=== PATIENT | female | born 1980 | race African-American/Black ===

== ENCOUNTER 2016-06-11 20:19 | Emergency (ER) | payer MEDICAID, OTHER ==
[~2016-06-11] VITALS: Ht 162.6 cm; Wt 101.0 kg
[~2016-06-11 20:19] MED LIST: IBUP600 PO; OXYC1SOL5 PO; PERI8.6T PO; PREN0.01 PO
[2016-06-11 20:20] VITALS: BP 147/70; PULSE 74; RESP 16; TEMP 98.1; O2SAT 99
--- NOTE | 2016-06-11 22:40 | RADRPT ---
EXAM DATE/TIME: 06/11/2016 22:12 [facility] COMPARISON: No previous studies available for comparison. INDICATIONS : Headache. MEDICAL HISTORY : None. SURGICAL HISTORY : None. ENCOUNTER: Initial ACUITY: 1 day PAIN SCORE: 0/10 LOCATION: Bilateral chest FINDINGS: Medial right apical and right paratracheal density is asymmetrically increased which I think is relat ed to rotation of the film. Lungs otherwise clear. No pleural effusion suspected. Heart size and pulm onary vascular are normal. Thoracic skeleton appears grossly intact. CONCLUSION: Increased right paratracheal density likely related to rotation. Follow up with good quality PA and l ateral views would be suggested Neftaly García MD on June 11, 2016 at 22:37 Board Certified Radiologist. This report was verified electronically.
--- NOTE | 2016-06-11 22:42 | PD ---
HPI Chief Complaint: Headache Time Seen by Provider: 21:42 Travel History International Travel<30 days: No Contact w/Intl Traveler<30days: No Traveled to known affect area: No History of Present Illness HPI The patient is a 35 year old female who presents to the [facility] emergency department with a history of reported headache that comes and goes and is waxing and waning in severity that began 3 days ago. She reports that the headache is a pressure sensation over the left side of her face. She denies having any dental problems on that side. She reports that she does have one loose tooth on the right. She reports that she does have chronic allergy symptoms and a dry cough, however this is been no worse than usual. She denies having any fevers or nasal discharge. She denies taking anything for the pain earlier today. She reports that earlier today she did have intermittent sensations of tingling in her left hand. She denies any numbness or tingling currently. She denies having any facial droop. She denies having any vision changes, difficulty with word finding ability, one-sided weakness, or slurred speech. She denies having any prior history of headaches similar to this. The patient denies any neck pain, chest pain, shortness of breath, abdominal pain, vomiting, diarrhea, urinary symptoms, or other neurologic symptoms. LMP May 28, 2016 PCP: Dr. Dye- 6 months ago. [facility] Past Medical History Narrative Medical The patient's past medical history is significant for chronic cough and allergies. Medical History: Denies Significant Hx Diminished Hearing: No Immunizations Current: No ?: Not LMP: 05/28/16 Menopausal: Yes : 5 Para: 3 Miscarriage: 2 Past Surgical History Narrative Surgical The patient's past surgical history is significant for x4. Section: Yes Social History Alcohol Use: Yes (OCC) Tobacco Use: No Substance Use: No Allergies-Medications (Allergen,Severity, Reaction): Coded Allergies: No Known Allergies (Verified , 06/11/16) Reported Meds & Prescriptions Reported Meds & Active Scripts Active Ibuprofen 600 Mg Tab 600 Mg PO Q8HR PRN Keflex (Cephalexin) 500 Mg Cap 500 Mg PO Q8H Motrin 600 Mg Tab (Ibuprofen) 600 Mg Tab 600 Mg PO Q6H PRN Vicenta-Colace 8.6-50 mg (Sennosides-Docusate Sodium) 1 Tab Tab 2 Tab PO Q12H PRN Oxycodone/Acetaminophen 5-325 mg/5Ml (Oxycodone W/ Acetaminophen) 1 Tab Tab 1 Tab PO Q4H PRN Reported Vitamins 1 Tab PO DAILY Review of Systems Except as stated in HPI: all other systems reviewed are Neg General / Constitutional: No: Fever Eyes: No: Visual changes HENT: Positive: Headaches, Rhinitis, No: Rhinorrhea, Congestion, Neck Pain Cardiovascular: No: Chest Pain or Discomfort, Dyspnea on exertion Respiratory: No: Cough, Shortness of Breath Gastrointestinal: No: Nausea, Vomiting, Diarrhea, Abdominal Pain Genitourinary: No: Dysuria Musculoskeletal: No: Pain Skin: No Rash Neurologic: Positive: Focal Abnormalities, Headache, Paresthesia (left hand), No: Weakness, Change in Mentation, Slurred Speech, Sensory Disturbance Psychiatric: No: Depression Endocrine: No: Polydipsia Hematologic/Lymphatic: No: Easy Bruising Physical Exam Narrative General: The patient is a well-developed well-nourished female in no acute distress. Head and Neck exam: Head is normocephalic atraumatic. Eyes: Extraocular motion is intact. Pupils are equal round and reactive to light. Nose: Midline septum with pink mucous membranes. no sinus tenderness on palpation of the frontal and maxillary sinuses. Mouth: Dentition unremarkable. No dental pain on palpation. No jaw pain on palpation. No jaw swelling noted. Moist mucus membranes. Posterior oropharynx is not erythematous. No tonsillar hypertrophy. Uvula midline. Airway patent. Neck: No palpable lymphadenopathy. No nuchal rigidity. No thyromegaly. Cardiovascular: Regular rate and rhythm without murmurs, gallops, or rubs. Lungs: Clear to auscultation bilaterally. No wheezes, rhonchi, or rales. Abdomen: Soft, without tenderness to palpation in all 4 quadrants of the abdomen. No guarding, rebound, or rigidity. Normal bowel sounds are audible. Extremities: No clubbing, cyanosis, or edema. 2+ pulses in all 4 extremities. Back: No spinous process tenderness to palpation. No costovertebral angle tenderness to palpation. Neurologic Exam: Cranial nerves 2-12 were intact on exam. Strength is 5/5 in all 4 extremities. No sensory deficits noted. Skin Exam: No rash noted. Intact skin that is warm and dry. Data Data Last Documented VS Vital Signs Date Time Temp Pulse Resp B/P Pulse Ox O2 Delivery O2 Flow Rate FiO2 06/12/16 01:10 98.4 66 16 139/88 100 Room Air Orders Electrocardiogram (06/11/16 21:52) Complete Blood Count With Diff (06/11/16 21:52) Comprehensive Metabolic Panel (06/11/16 21:52) Creatine Kinase (Cpk) (06/11/16 21:52) Ckmb (Isoenzyme) Profile (06/11/16 21:52) Troponin I (06/11/16 21:52) Prothrombin Time / Inr (Pt) (06/11/16 21:52) Act Partial Throm Time (Ptt) (06/11/16 21:52) Urinalysis - C+S If Indicated (06/11/16 21:52) Magnesium (Mg) (06/11/16 21:52) Chest, Single Ap (06/11/16 21:52) Ct Brain W/O Iv Contrast(Rout) (06/11/16 21:52) Iv Access Insert/Monitor (06/11/16 21:52) Ecg Monitoring (06/11/16 21:52) Oximetry (06/11/16 21:52) Ed Urine Pregnancytest Poc (06/11/16 21:52) Mri Brain W&W/O Contrast (06/11/16 21:52) Ct Cerv Spine W/O Contrast (06/11/16 ) Sodium Chlor 0.9% 1000 Ml Inj (Ns 1000 M (06/11/16 23:00) Ketorolac Inj (Toradol Inj) (06/11/16 23:00) Urine Culture (06/11/16 22:26) CKMB (06/11/16 22:36) CKMB% (06/11/16 22:36) Ceftriaxone Inj (Rocephin Inj) (06/12/16 00:00) Gadodiamide Pf Inj (Omniscan Pf Inj) (06/11/16 23:57) Labs Laboratory Tests Test 06/11/16 06/11/16 22:26 22:36 Urine Color YELLOW Urine Turbidity HAZY Urine pH 6.0 Urine Specific [place] 1.025 Urine Protein NEG mg/dL Urine Glucose (UA) NEG mg/dL Urine Ketones NEG mg/dL Urine Occult Blood SMALL Urine Nitrite NEG Urine Bilirubin NEG Urine Urobilinogen LESS THAN 2.0 MG/DL Urine Leukocyte Esterase LARGE Urine RBC 7 /hpf Urine WBC 12 /hpf Urine Squamous Epithelial 10 /hpf Cells Urine Transitional Epithelial <1 /hpf Cells Urine Bacteria RARE /hpf Urine Mucus FEW /lpf Microscopic Urinalysis Comment CULTURE INDICATED White Blood Count 9.9 TH/MM3 Red Blood Count 4.37 MIL/MM3 Hemoglobin 11.6 GM/DL Hematocrit 35.4 % Mean Corpuscular Volume 81.1 FL Mean Corpuscular Hemoglobin 26.6 PG Mean Corpuscular Hemoglobin 32.8 % Concent Red Cell Distribution Width 15.7 % Platelet Count 236 TH/MM3 Mean Platelet Volume 9.6 FL Neutrophils (%) (Auto) 53.4 % Lymphocytes (%) (Auto) 37.5 % Monocytes (%) (Auto) 6.9 % Eosinophils (%) (Auto) 1.4 % Basophils (%) (Auto) 0.8 % Neutrophils # (Auto) 5.3 TH/MM3 Lymphocytes # (Auto) 3.7 TH/MM3 Monocytes # (Auto) 0.7 TH/MM3 Eosinophils # (Auto) 0.1 TH/MM3 Basophils # (Auto) 0.1 TH/MM3 CBC Comment DIFF FINAL Differential Comment Prothrombin Time 10.8 SEC Prothromb Time International 1.0 RATIO Ratio Activated Partial 27.3 SEC Thromboplast Time Sodium Level 138 MEQ/L Potassium Level 4.1 MEQ/L Chloride Level 106 MEQ/L Carbon Dioxide Level 26.0 MEQ/L Anion Gap 6 MEQ/L Blood Urea Nitrogen 13 MG/DL Creatinine 0.70 MG/DL Estimat Glomerular Filtration 117 ML/MIN Rate Random Glucose 90 MG/DL Calcium Level 8.7 MG/DL Magnesium Level 1.8 MG/DL Total Bilirubin 0.2 MG/DL Aspartate Amino Transf 10 U/L (AST/SGOT) Alanine Aminotransferase 15 U/L (ALT/SGPT) Alkaline Phosphatase 61 U/L Total Creatine Kinase 123 U/L Creatine Kinase MB LESS THAN 0.5 NG/ML Troponin I LESS THAN 0.02 NG/ML Total Protein 8.4 GM/DL Albumin 3.5 GM/DL MDM Medical Decision Making Medical Screen Exam Complete: Yes Emergency Medical Condition: Yes Medical Record Reviewed: Yes Interpretation(s) Last Impressions Head CT 06/11/16 2151 Signed Impressions: Service Date/Time: Sunday, June 12, 2016 00:22 - CONCLUSION: Normal examination. Neftaly García MD Chest X-Ray 06/11/162151 Signed Impressions: Service Date/Time: Saturday, June 11, 2016 22:12 - CONCLUSION: Increased right paratracheal density likely related to rotation. Follow up with good quality PA and lateral views would be suggested Neftaly García MD Brain MRI 06/11/162151 Signed Impressions: Service Date/Time: Saturday, June 11, 2016 23:26 - CONCLUSION: No acute intracranial findings Neftaly García MD Cervical Spine CT 06/11/16 0000 Signed Impressions: Service Date/Time: Sunday, June 12, 2016 00:22 - CONCLUSION: No acute bony findings. Degenerative change most significantly C5-6. 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 The patient had IV access obtained and blood work sent for analysis. The patient was placed on a webbing seamer pound net with oximetry and blood pressure monitoring. CT scan of the head and neck was ordered. The patient had an EKG done. The patient's EKG shows a sinus rhythm heart rate of [address] segment elevation, T waves are inverted in V1, lead 3, no acute ST segment depression. The patient was provided Toradol for pain, normal saline 1 L IV fluid bolus, Rocephin 1 g IV 1 after urinary tract infection was identified. The patients laboratory studies were reviewed and remarkable for a CBC that is unremarkable. CMP is unremarkable, CPK within normal limits, troponin I less than 0.02, PT PTT unremarkable. Urinalysis shows small occult blood and large leukocyte Estrace 7 RBCs 12 WBCs rare bacteria, culture indicated. Radiology studies were reviewed and remarkable for a CT scan of the brain that shows no acute abnormality, CT scan of the C-spine shows some degenerative changes, otherwise no acute abnormality. MRI of the brain was read as negative for acute abnormality by the reading radiologist. Chest x-ray shows increased right paratracheal density likely related to rotation, recommended follow-up with a good quality PA and lateral view, however at this time the patient denies having any acute respiratory complaints and would like to avoid further radiation. I suspect from looking at the films myself that the patient is rotated. The patient will be discharged home with a prescription for antibiotic and Motrin. The patient was instructed regarding the importance of close follow-up with her primary care physician I recommended that she followed up in the next 3 days for reexamination. The patient reported improvement on reevaluation. The patient is resting comfortably and feels better, is alert and in no distress. The patients results and examination findings were discussed with the patient The repeat examination is unremarkable and benign. The history, exam , diagnostic testing, and current condition do not suggest any significant pathology to warrant further testing, continued ED treatment, admission, or surgical evaluation at this point. The vital signs have been stable. The patient does not have uncontrollable pain, intractable vomiting, or other significant symptoms. The patient's condition is stable and appropriate for discharge. The patient will pursue further outpatient evaluation with a primary care physician or other designated or consulting physician as indicated in the discharge instructions. The patient expressed understanding and was agreeable with this plan. Diagnosis Primary Impression: Headache Qualified Code: R51 - Acute nonintractable headache, unspecified headache type Additional Impressions: Left hand paresthesia Urinary tract infection Qualified Code: N30.00 - Acute cystitis without hematuria Referrals: Primary Care Physician Patient Instructions: Acute Headache (ED), General Instructions, Paresthesia ( ED), Urinary Tract Infection in Women (ED) Med/Other Pt SpecificInfo: Prescription(s) given Scripts Ibuprofen 600 Mg [id number] Mg PO Q8HR PRN (PAIN) #9 TAB Ref 0 Prov:Leydi Elizondo MD 06/12/16 Cephalexin (Keflex)500 Mg [id number] Mg PO Q8H #30 CAP Ref 0 Prov:Leydi Elizondo MD 06/12/16 Disposition: 01 DISCHARGE HOME Condition: Stable Leydi Elizondo MD Jun 11, 2016 22:41
[2016-06-11 22:54] LABS: AUTOMATED NEUTROPHIL # 5.3 TH/MM3 (1.8-7.7); BASOPHIL # 0.1 TH/MM3 (0-0.2); BASOPHIL % 0.8 % (0.0-2.0); EOSINOPHIL # 0.1 TH/MM3 (0-0.4); EOSINOPHIL % 1.4 % (0.0-4.0); HEMATOCRIT 35.4 % (35.0-46.0); HEMO FLAGS DIFF FINAL; LYMPH % 37.5 % (9.0-44.0); LYMPHOCYTE # 3.7 TH/MM3 (1.0-4.8); MEAN CELL VOLUME 81.1 FL (80.0-100.0); MEAN CORPUSCULAR HEMOGLOBIN 26.6 PG (27.0-34.0); MEAN CORPUSCULAR HGB CONC 32.8 % (32.0-36.0); MONO % 6.9 % (0.0-8.0); NEUT % 53.4 % (16.0-70.0); PLATELET COUNT 236 TH/MM3 (150-450); RED BLOOD COUNT 4.37 MIL/MM3 (4.00-5.30); RED CELL DISTRIBUTION WIDTH 15.7 % (11.6-17.2); WHITE BLOOD COUNT 9.9 TH/MM3 (4.0-11.0)
[2016-06-11 22:57] LABS: BACTERIA, URINE RARE /hpf; BLOOD, URINE SMALL (NEG); GLUCOSE,URINE NEG (NEG); KETONE, URINE NEG (NEG); MUCUS URINE FEW /lpf (OCC); NITRITE,URINE NEG (NEG); SQUAMOUS EPITHELIAL CELL URINE 10 /hpf (0-5); TRANSITIONAL EPI CELLS, URINE <1 /hpf; URINE COLOR YELLOW (YELLW/STRAW)
[2016-06-11 22:59] LABS: COMMENT (UR) CULTURE INDICATED; CULTURE IF INDICATED CULTURE INDICATED
[2016-06-11] MEDS ORDERED: KETOROLAC TROMETHAMINE 30 MG/ML (IVP) VIAL IV PUSH ONE (23:00)
[2016-06-11] MEDS ORDERED: SODIUM CHLOR 0.9% 1000 ML INJ 1,000 ML IV ONE (23:00)
[2016-06-11 23:04] LABS: APTT (PATIENT) 27.3 SEC (24.3-30.1); PROTHROMBIN TIME - PATIENT 10.8 SEC (9.8-11.6)
[2016-06-11 23:10] VITALS: BP 139/88; PULSE 67; RESP 18; O2SAT 100
[2016-06-11 23:18] LABS: ALT (GPT) 15 U/L (10-53); ANION GAP 6 MEQ/L (5-15); AST (GOT) 10 U/L (15-37); BLOOD UREA NITROGEN 13 MG/DL (7-18); CHLORIDE 106 MEQ/L (98-107); GLOMERULAR FILTRATION RATE 117 ML/MIN (>89); MAGNESIUM 1.8 MG/DL (1.5-2.5); POTASSIUM 4.1 MEQ/L (3.5-5.1); SODIUM (NA) 138 MEQ/L (136-145)
[2016-06-11 23:21] LABS: ALKALINE PHOSPHATASE 61 U/L (45-117); CREATINE KINASE 123 U/L (26-192); TOTAL BILIRUBIN ADULT 0.2 MG/DL (0.2-1.0)
[2016-06-11 23:33] LABS: CKMB LESS THAN 0.5 NG/ML (0.5-3.6)
[2016-06-11] MEDS ORDERED: GADODIAMIDE PF 287 MG/ML 20 ML VIAL (for RAD MRI) IV ONE (23:57)
[2016-06-12] MEDS ORDERED: cefTRIAXone INJ 1,000 MG in SODIUM CHLORIDE 0.9% INJ 100 ML IV ONE ×2
--- NOTE | 2016-06-12 00:13 | RADRPT ---
EXAM DATE/TIME: 06/11/2016 23:26 [facility] COMPARISON: No previous studies available for comparison. INDICATIONS : Cephalgia. Left sided tingling. CONTRAST: 20 cc Omniscan (gadodiamide) IV MEDICAL HISTORY : None. SURGICAL HISTORY : Tubal ligation. section. ENCOUNTER: Initial ACUITY: 1 day PAIN SCORE: 3/10 LOCATION: head TECHNIQUE: Multiplanar, multisequence MRI of the brain was performed both prior to and following the administrat ion of paramagnetic contrast. FINDINGS: CEREBRUM: The ventricles are normal for age. No evidence of midline shift, mass lesion, hemorrhage or acute in farction. No extraaxial fluid collections are seen. The pituitary gland and suprasellar cistern are normal in configuration. WHITE MATTER: Single punctate focus of white matter T2 prolongation in the right temporal region without abnormal e nhancement. POSTERIOR FOSSA: The cerebellum and brainstem are intact. The 4th ventricle is midline. The cerebellopontine angle is unremarkable. The cerebellar tonsils are normal in position. DIFFUSION IMAGING: No focal areas of restricted diffusion are seen. No evidence of acute infarction. EXTRACRANIAL: The visualized portions of the orbits and paranasal sinuses are unremarkable. POST-CONTRAST: No abnormal areas of parenchymal or dural enhancement. No evidence of blood-brain barrier breakdown. CONCLUSION: No acute intracranial findings Neftaly García MD on June 12, 2016 at 0:07 Board Certified Radiologist. This report was verified electronically.
--- NOTE | 2016-06-12 00:36 | RADRPT ---
EXAM DATE/TIME: 06/12/2016 00:22 [facility] COMPARISON: No previous studies available for comparison. INDICATIONS : Cephalgia on left side of head with left sided face and finger tingling. RADIATION DOSE: 37.56 CTDIvol (mGy) MEDICAL HISTORY : None SURGICAL HISTORY : None. ENCOUNTER: Initial ACUITY: 3 days PAIN SCALE: 2/10 LOCATION: Left cranial TECHNIQUE: Multiple contiguous axial images were obtained of the head. Using automated exposure control and adj ustment of the mA and/or kV according to patient size, radiation dose was kept as low as reasonably a chievable to obtain optimal diagnostic quality images. FINDINGS: CEREBRUM: The ventricles are normal for age. No evidence of midline shift, mass lesion, hemorrhage or acute in farction. No extra-axial fluid collections are seen. POSTERIOR FOSSA: The cerebellum and brainstem are intact. The 4th ventricle is midline. The cerebellopontine angle i s unremarkable. EXTRACRANIAL: The visualized portion of the orbits is intact. SKULL: The calvaria is intact. No evidence of skull fracture. CONCLUSION: Normal examination. Neftaly García MD on June 12, 2016 at 0:34 Board Certified Radiologist. This report was verified electronically.
--- NOTE | 2016-06-12 00:42 | RADRPT ---
EXAM DATE/TIME: 06/12/2016 00:22 [facility] COMPARISON: No previous studies available for comparison. INDICATIONS : Radiculopathy. RADIATION DOSE: 21.58 CTDIvol (mGy) MEDICAL HISTORY : None SURGICAL HISTORY : None. ENCOUNTER: Initial ACUITY: 1 day PAIN SCALE: 0/10 LOCATION: Left neck TECHNIQUE: Volumetric scanning of the cervical spine was performed. Multiplanar reconstructions in the sagittal, coronal and oblique axial planes were performed. Using automated exposure control and adjustment o f the mA and/or kV according to patient size, radiation dose was kept as low as reasonably achievable to obtain optimal diagnostic quality images. FINDINGS: There is slight reversal of normal cervical lordosis. No evidence of spondylolisthesis. There is no e vidence of fracture. No bony canal or foraminal stenosis is identified. There is disc space narrowing most significantly at C5-6 with small dorsal and ventral endplate osteophytes. Mild accompanying carola tanesha disc protrusion at this level. 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 CONCLUSION: No acute bony findings. Degenerative change most significantly C5-6. 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 This report was verified electronically.
[2016-06-12] MEDS ORDERED: CEPH-460 PO (01:00)
[2016-06-12] MEDS ORDERED: IBUP-232 PO (01:00)
[2016-06-12 01:10] VITALS: BP 139/88; PULSE 66; RESP 16; TEMP 98.4; O2SAT 100
--- NOTE | 2016-06-12 19:25 | EKG ---
Date Performed: 06/12/2016 Time Performed: 00:01:53 PTAGE: 35 years EKG: Sinus rhythm NORMAL ECG NO PREVIOUS TRACING DOCTOR: Mathieu Reyes Interpretating Date/Time 06/12/2016 19:21:27
== END 2016-06-12 01:12 | disposition home or self-care (01) ==
LOC: NEPE 20:19
DX: R51 Headache (principal); N39.0 Urinary tract infection, site not specified; R20.2 Paresthesia of skin
CPT/HCPCS: 70450; 70553; 71010; 72125; 80053; 81001; 82550; 82552; 83735; 84484; 84703; 85025; 85610; 85730; 87086; 93005; 96374; 96375; 99284; A9579; J0696; J1885; J7030